=== PATIENT | female | born 1965 | race Caucasian/White ===

== ENCOUNTER 2018-06-23 20:09 | Emergency (ER) | payer OTHER ==
[2018-06-23 21:06] VITALS: BP 130/90
[2018-06-23] MEDS ORDERED: Acetaminophen TAB* 325 MG PO ONE (21:11)
[2018-06-23 21:20] LABS: Influenza A Molecular POSITIVE (Negative)
--- NOTE | 2018-06-23 21:20 | ED ---
Respiratory - HPI Summary HPI Summary: 53 yr old female with the complaint of fever, chills, runny nose, cough, diarrhea. Onset 36 hours ago. She has had diarrhea times three. 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 She denies SOB. She is a smoker. - History of Current Complaint Chief Complaint: UCRespiratory Stated Complaint: COUGH,CHILLS,HEADACHE Time Seen by Provider: 06/23/18 20:59 Pain Intensity: 5 - Allergy/Home Medications Allergies/Adverse Reactions: Allergies Allergy/AdvReac Type Severity Reaction Status Date / Time No Known Allergies Allergy Verified 06/23/18 21:00 Home Medications: Home Medications D-Methorphan/PE/Acetaminophen [Theraflu Expressmax Sever 20-10-650 mg/30Ml] 1 liq PO Q6H PRN 06/23/18 [History Confirmed 06/23/18] PMH/Surg Hx/FS Hx/Imm Hx Infectious Disease History: No Infectious Disease History: Denies: Traveled Outside the [place] in Last 30 Days - Family History Known Family History: Positive: None - Social History Occupation: Employed Full-time Lives: With Family Alcohol Use: Occasionally Substance Use Type: Reports: Excessive Caffeine Smoking Status (MU): Heavy Every Day Tobacco Smoker Review of Systems Positive: Fever, Chills Positive: Nasal Discharge Positive: Cough Positive: Diarrhea. Negative: Vomiting, Nausea All Other Systems Reviewed And Are Negative: Yes Physical Exam Triage Information Reviewed: Yes Vital Signs On Initial Exam: Initial Vitals Temp Pulse Resp BP Pulse Ox 101 F 97 20 130/90 99 06/23/18 21:01 06/23/18 21:01 06/23/18 21:01 06/23/18 21:01 06/23/18 21:01 Vital Signs Reviewed: Yes Appearance: Positive: Well-Appearing, No Pain Distress Skin: Positive: Warm, Skin Color Reflects Adequate Perfusion Head/Face: Positive: Normal Head/Face Inspection Eyes: Positive: EOMI ENT: Positive: Pharyngeal erythema, Nasal congestion, Nasal drainage, TMs normal. Negative: Muffled voice, Sinus tenderness Respiratory/Lung Sounds: Positive: Clear to Auscultation, Breath Sounds Present Cardiovascular: Positive: RRR. Negative: Murmur Abdomen Description: Positive: Nontender Musculoskeletal: Positive: Strength/ROM Intact Neurological: Positive: Sensory/Motor Intact, Alert, Oriented to Person Place, Time, CN Intact II-III Psychiatric: Positive: Normal Diagnostics - Vital Signs Vital Signs Temp Pulse Resp BP Pulse Ox 06/23/18 21:01 101 F 97 20 130/90 99 - Laboratory Lab Statement: Any lab studies that have been ordered have been reviewed, and results considered in the medical decision making process. Disposition - Course Course Of Treatment: 53 yr old with influenza. Rx Tamiflu Fu with PMD. OFF work until 06/28/18 - Diagnoses Provider Diagnoses: Influenza A, Hypertension Discharge - Sign-Out/Discharge Documenting (check all that apply): Patient Departure All imaging exams completed and their final reports reviewed: No Studies - Discharge Plan Condition: Good Disposition: HOME Prescriptions: Oseltamivir CAP* [Tamiflu CAP*] 75 mg PO BID #10 cap Patient Education Materials: Influenza (ED), Hypertension (ED) Forms: *Work Release Referrals: Carloz Johnson MD [Primary Care Provider] - 2 Days - Billing Disposition and Condition Condition: GOOD Disposition: Home
[2018-06-23] MEDS ORDERED: Oseltamivir CAP* 75 MG CAP PO ONE (21:28)
== END 2018-06-23 21:40 | disposition home or self-care (01) ==
LOC: UCCORT 20:09
DX: J10.1 Influenza due to other identified influenza virus with other respiratory manifestations (principal); I10 Essential (primary) hypertension; F17.200 Nicotine dependence, unspecified, uncomplicated
CPT/HCPCS: 99212; A9270-GY; G0463

== ENCOUNTER 2019-06-18 08:29 | Emergency (ER) | payer OTHER ==
[2019-06-18 08:52] VITALS: BP 116/79
--- NOTE | 2019-06-18 09:19 | UC ---
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 -did not check temp at home + smoker. denies copd or asthma, DM, CKD - History of Current Complaint Chief Complaint: UCRespiratory Stated Complaint: CONGESTION,SORE THROAT,CHILLS Time Seen by Provider: 06/18/19 08:44 Hx Last Menstrual Period: 2014 Pain Intensity: 8 - Allergies/Home Medications Allergies/Adverse Reactions: Allergies Allergy/AdvReac Type Severity Reaction Status Date / Time No Known Allergies Allergy Verified 06/18/19 08:52 Home Medications: Home Medications Amitriptyline TAB* [Elavil TAB*] 15 mg PO BEDTIME 06/18/19 [History Confirmed ] Sertraline* [Zoloft*] 100 mg PO BEDTIME 06/18/19 [History Confirmed 06/18/19] buPROPion SR TAB* [Wellbutrin SR TAB*] 150 mg PO BID 06/18/19 [History Confirmed 06/18/19] PMH/Surg Hx/FS Hx/Imm Hx Previously Healthy: Yes - Surgical History Surgical History: Yes Surgery Procedure, Year, and Place: - Family History Known Family History: Positive: None - Social History Alcohol Use: Occasionally Substance Use Type: Excessive Caffeine Smoking Status (MU): Heavy Every Day Tobacco Smoker Review of Systems All Other Systems Reviewed And Are Negative: Yes Constitutional: Positive: Chills, Fatigue Skin: Negative: Negative, Rash Eyes: Positive: Negative ENT: Positive: Sore Throat, Nasal Discharge, Sinus Congestion Respiratory: Positive: Cough. Negative: Shortness Of Breath Cardiovascular: Positive: Negative. Negative: Palpitations, Chest Pain Gastrointestinal: Positive: Diarrhea - mild today. Negative: Vomiting, Nausea Genitourinary: Positive: Negative Motor: Positive: Negative Neurovascular: Positive: Negative Musculoskeletal: Positive: Myalgia Neurological/Mental Status: Positive: Negative Psychological: Positive: Negative Is Patient Immunocompromised?: No Physical Exam Triage Information Reviewed: Yes Appearance: Ill-Appearing - mildly ill, very pleasnat Vital Signs: Initial Vital Signs Temp 99.4 F 06/18/19 08:43 Pulse 84 06/18/19 08:43 Resp 18 06/18/19 08:43 BP 116/79 06/18/19 08:43 Pulse Ox 97 06/18/19 08:43 Vital Signs Reviewed: Yes Eye Exam: Normal ENT Exam: Normal ENT: Positive: Pharyngeal erythema - +PND, no exudate, Nasal drainage, TMs normal, Uvula midline. Negative: TM bulging, TM dull, TM red, Tonsillar swelling, Tonsillar exudate, Sinus tenderness Neck exam: Normal Neck: Positive: Supple, Nontender, No Lymphadenopathy Respiratory Exam: Normal Respiratory: Positive: Lungs clear, Normal breath sounds, No respiratory distress, No accessory muscle use. Negative: Crackles, Rhonchi, Stridor, Wheezing Cardiovascular Exam: Normal Cardiovascular: Positive: RRR, No Murmur Abdominal Exam: Normal Abdomen Description: Positive: Nontender, Soft Musculoskeletal Exam: Normal Neurological Exam: Normal Psychological Exam: Normal Skin Exam: Normal Skin: Negative: Rashes Respiratory Course/Dx - Course Course Of Treatment: Neg rapid flu -sopportive tretament -APPA/ISI for pain prn -fluids, rest - Differential Dx/Diagnosis Differential Diagnosis/HQI/PQRI: Bronchitis, Influenza, Laryngitis, Lower Resp Infection, Sinusitis Provider Diagnosis: Bronchitis Discharge ED - Sign-Out/Discharge Documenting (check all that apply): Patient Departure All imaging exams completed and their final reports reviewed: No Studies - Discharge Plan Condition: Stable Disposition: HOME Patient Education Materials: Acute Bronchitis (ED) Forms: *Work Release Referrals: Carloz Johnson MD [Primary Care Provider] - Additional Instructions: The rapid flu test is negative. There is no evidence for bacterial infection. I recommend you try to stop smoking. Increase fluids and rest. You should follow up sooner if your symptoms increase or persist. - Billing Disposition and Condition Condition: STABLE Disposition: Home
[2019-06-18 09:38] LABS: Influenza A Molecular Negative (Negative); Influenza B Molecular Negative (Negative)
== END 2019-06-18 09:50 | disposition home or self-care (01) ==
LOC: UCCORT 08:29
DX: J40 Bronchitis, not specified as acute or chronic (principal); F17.290 Nicotine dependence, other tobacco product, uncomplicated; R19.7 Diarrhea, unspecified; J02.9 Acute pharyngitis, unspecified; M79.10 Myalgia, unspecified site
CPT/HCPCS: 99211; G0463

== ENCOUNTER 2019-06-26 10:53 | Emergency (ER) | payer OTHER ==
[2019-06-26 11:57] VITALS: BP 119/83
[2019-06-26 12:34] LABS: Influenza A Molecular Negative (Negative); Influenza B Molecular Negative (Negative)
--- NOTE | 2019-06-26 12:38 | UC ---
FLU HPI - HPI Summary HPI Summary: Pt presents with c/o nasal congestion, cough, right ear pain, cough, malaise, chills, and body aches. Pt was tested for flu last week and result was negative. Pt states symptoms have worsened over the last "few days". - History of Current Complaint Chief Complaint: UCRespiratory Stated Complaint: EAR PAIN, CONGESTION Time Seen by Provider: 06/26/19 12:10 Hx Obtained From: Patient Hx Last Menstrual Period: 2014 ?: No Onset/Duration: Gradual Onset, Lasting Days, Worse Since - onset Severity Currently: Mild Severity Initially: Moderate Pain Intensity: 7 Associated Signs & Symptoms: Positive: Fever, Myalgia, Cough, Nasal Congestion, Headache Related Hx: Possible Flu/Infectious Exposure, Smoking - Allergy/Home Medications Allergies/Adverse Reactions: Allergies Allergy/AdvReac Type Severity Reaction Status Date / Time No Known Allergies Allergy Verified 06/26/19 11:47 Home Medications: Home Medications Amitriptyline TAB* [Elavil TAB*] 15 mg PO BEDTIME 06/18/19 [History Confirmed ] Sertraline* [Zoloft*] 100 mg PO BEDTIME 06/18/19 [History Confirmed 06/26/19] buPROPion SR TAB* [Wellbutrin SR TAB*] 150 mg PO BID 06/18/19 [History Confirmed 06/26/19] Azithromycin TAB* [Zithromax TAB (Z-ERNA) 250 mg #6 tabs] 2 tab PO .TODAY, THEN 1 DAILY #1 erna 06/26/19 [Rx] Benzonatate CAP* [Tessalon 100 MG CAP*] 100 mg PO Q8H PRN #30 cap 06/26/19 [Rx] Guaifenesin/Pseudoephedrne HCl [Mucinex D ER 600-60 mg Tablet] 1 each PO Q12H # 14 tab.er.12h 06/26/19 [Rx] predniSONE 10 mg TAB [Deltasone 10 MG TAB*] 30 mg PO DAILY #12 tab 06/26/19 [Rx] PMH/Surg Hx/FS Hx/Imm Hx Previously Healthy: Yes Psychological History: Anxiety, Depression - Surgical History Surgical History: Yes Surgery Procedure, Year, and Place: - Family History Known Family History: Positive: None - Social History Occupation: Employed Full-time Lives: With Family Alcohol Use: None Substance Use Type: None Smoking Status (MU): Heavy Every Day Tobacco Smoker Type: Cigarettes Amount Used/How Often: 1/2 PPD Have You Smoked in the Last Year: Yes Review of Systems All Other Systems Reviewed And Are Negative: Yes Constitutional: Positive: Fever, Chills, Fatigue Skin: Positive: Negative Eyes: Positive: Negative ENT: Positive: Ear Ache, Nasal Discharge, Sinus Congestion Respiratory: Positive: Cough Cardiovascular: Positive: Negative Gastrointestinal: Positive: Negative Genitourinary: Positive: Negative Motor: Positive: Negative Neurovascular: Positive: Negative Musculoskeletal: Positive: Myalgia Neurological/Mental Status: Positive: Headache Psychological: Positive: Negative Is Patient Immunocompromised?: No Physical Exam Triage Information Reviewed: Yes Appearance: Ill-Appearing Vital Signs: Initial Vital Signs Temp 98.4 F 06/26/19 11:47 Pulse 97 06/26/19 11:47 Resp 16 06/26/19 11:47 BP 119/83 06/26/19 11:47 Pulse Ox 98 06/26/19 11:47 Vital Signs Reviewed: Yes Eye Exam: Normal ENT: Positive: Nasal congestion, Hoarse voice Dental Exam: Normal Neck exam: Normal Respiratory: Positive: Wheezing Cardiovascular Exam: Normal Musculoskeletal Exam: Normal Neurological Exam: Normal Psychological Exam: Normal Skin Exam: Normal Flu Course/Dx - Differential Dx/Diagnosis Differential Diagnosis/HQI/PQRI: Bronchitis, Influenza, Upper Respiratory Infection Provider Diagnosis: Bronchitis Discharge ED - Sign-Out/Discharge Documenting (check all that apply): Patient Departure All imaging exams completed and their final reports reviewed: No Studies - Discharge Plan Condition: Stable Disposition: HOME Prescriptions: Azithromycin TAB* [Zithromax TAB (Z-ERNA) 250 mg #6 tabs] 2 tab PO .TODAY, THEN 1 DAILY #1 erna Benzonatate CAP* [Tessalon 100 MG CAP*] 100 mg PO Q8H PRN #30 cap PRN Reason: Cough Guaifenesin/Pseudoephedrne HCl [Mucinex D ER 600-60 mg Tablet] 1 each PO Q12H # 14 tab.er.12h predniSONE 10 mg TAB [Deltasone 10 MG TAB*] 30 mg PO DAILY #12 tab Patient Education Materials: Acute Bronchitis (ED), Earache (ED) Forms: *Work Release Referrals: Carloz Johnson MD [Primary Care Provider] - If Needed - Billing Disposition and Condition Condition: STABLE Disposition: Home
== END 2019-06-26 12:46 | disposition home or self-care (01) ==
LOC: UCCORT 10:53
DX: J40 Bronchitis, not specified as acute or chronic (principal); R09.81 Nasal congestion; H92.09 Otalgia, unspecified ear; R09.89 Other specified symptoms and signs involving the circulatory and respiratory systems; M79.10 Myalgia, unspecified site; R51 Headache; F41.9 Anxiety disorder, unspecified; F32.9 Major depressive disorder, single episode, unspecified; F17.210 Nicotine dependence, cigarettes, uncomplicated; Z79.899 Other long term (current) drug therapy
CPT/HCPCS: 99212; G0463